=== PATIENT | female | born 1950 | race Hispanic/Latino ===

== ENCOUNTER → 2022-12-22 | Outpatient (REF) | payer MEDICARE ==
[~2022-12-22] MED LIST: CRESTOR10 MG PO; LEVOTHYROXINE75 MCG PO; LISINOPRIL10 MG PO; METFORMIN HCL500 MG PO; PANTOPRAZOLE SO40 MG PO
== END ==
LOC: MAMMO 12:36
PROVIDERS: ATTEND Internal Medicine
DX: N64.9 Disorder of breast, unspecified (principal)

== ENCOUNTER → 2023-12-20 | Outpatient (REF) | payer MEDICARE ==
[~2023-12-20] MED LIST changes: +CALCIUM PO; +FEROSUL325 MG PO; +ULTRAM 50MG50 MG PO; +VITAMIN D3125 MCG PO
== END ==
LOC: MAMMO 12:49
PROVIDERS: ATTEND Internal Medicine
DX: N60.02 Solitary cyst of left breast (principal)
CPT/HCPCS: 77066